=== PATIENT | female | born 1985 | race Caucasian/White ===

== ENCOUNTER 2025-01-16 22:57 | Emergency (ER) | payer OTHER ==
[~2025-01-16] VITALS: Ht 162.6 cm; Wt 63.5 kg
[2025-01-16] MEDS ORDERED: IBUPROFEN 600 MG TABLET ONE (23:31)
[2025-01-16] MEDS ORDERED: CLINDAMYCIN HCL 150 MG CAPSULE ONE (23:31)
[2025-01-16] MEDS: CLINDAMYCIN HCL 150 MG CAPSULE PO ONE (23:34)
[2025-01-16] MEDS: IBUPROFEN 600 MG TABLET PO ONE (23:34)
[2025-01-16] MEDS ORDERED: CLIN300C12 PO (23:41)
[2025-01-17 00:12] VITALS: BP 130/81; TEMP 98; O2SAT 98
== END 2025-01-17 00:13 | disposition home or self-care (01) ==
LOC: ER 22:58
DX: L03.114 Cellulitis of left upper limb (principal)